=== PATIENT | male | born 1950 | race African-American/Black ===

== ENCOUNTER 2020-08-21 14:47 | Emergency (ER) | payer OTHER ==
[~2020-08-21] VITALS: Ht 175.3 cm; Wt 81.0 kg
[2020-08-21 16:01] LABS: CLARITY URINE CLEAR (CLEAR); COLOR URINE YELLOW (YELLOW); KETONES URINE NEGATIVE (NEGATIVE); LEUKOCYTE ESTERASE URINE NEGATIVE (NEGATIVE); NITRITE URINE NEGATIVE (NEGATIVE); OCCULT BLOOD URINE 3+ (NEGATIVE); PH URINE 7.5 (4.5-8.0); PROTEIN URINE NEGATIVE (NEGATIVE); SPECIFIC GRAVITY URINE 1.009 (1.005-1.030); UROBILINOGEN URINE 0.2 E.U./dL (0.2-1.0)
[2020-08-21 18:37] VITALS: BP 125/80
[2020-08-21] MEDS ORDERED: CIPR-263 MT (19:07)
== END 2020-08-21 19:36 | disposition home or self-care (01) ==
LOC: ER 15:48
DX: N40.1 Benign prostatic hyperplasia with lower urinary tract symptoms (principal); R33.8 Other retention of urine; R30.0 Dysuria; R39.15 Urgency of urination; R31.29 Other microscopic hematuria; I10 Essential (primary) hypertension
CPT/HCPCS: 76770; 81003; 99284